=== PATIENT | female | born 1970 | race Caucasian/White ===

== ENCOUNTER 2016-10-16 08:52 | Emergency (ER) | payer SELFPAY ==
[2015-04-05 14:47] VITALS: BMI 32.1
[~2016-10-16 08:52] MED LIST: KAZANO; PRINIVIL20 MG PO; ZOLOFT100 MG PO
== END 2016-10-16 10:32 | disposition home or self-care (01) ==
LOC: D.ER 08:52
DX: M54.16 Radiculopathy, lumbar region (principal); F17.200 Nicotine dependence, unspecified, uncomplicated; I10 Essential (primary) hypertension; F32.9 Major depressive disorder, single episode, unspecified